=== PATIENT | female | born 1950 | race Caucasian/White ===

== ENCOUNTER → 2017-06-11 | Outpatient (CLI) | payer OTHER, SELFPAY ==
[~2017-06-11] MED LIST: CALMAGZIN PO; Glucophage1000 MG PO; HYDCHL12.5 PO; LEVSOD75 PO; POTA10T PO; [UNRECOGNIZED DRUG - OTHER] PO
== END ==
LOC: LAB SHORT 13:26 → PLD 13:26
DX: D22.61 Melanocytic nevi of right upper limb, including shoulder (principal); D22.5 Melanocytic nevi of trunk
CPT/HCPCS: 88305

== ENCOUNTER 2019-05-05 08:25 | Day surgery (SDC) | payer MEDICARE, OTHER ==
[~2019-05-05 08:25] MED LIST changes: +ASPI81CH PO; +MIRALAX17 GM PO; +VIT1CAPS12 PO
== END 2019-05-05 22:58 | disposition home or self-care (01) ==
LOC: MOI MAM 08:25
DX: D24.1 Benign neoplasm of right breast (principal); N60.11 Diffuse cystic mastopathy of right breast
CPT/HCPCS: 19081; 88305

== ENCOUNTER → 2019-09-13 | Outpatient (CLI) | payer MEDICARE, OTHER | END | disposition home or self-care (01) | LOC: LAB SHORT 09:22 → PLD 09:22 | DX: D22.5 Melanocytic nevi of trunk (principal) | CPT/HCPCS: 88305 ==

== ENCOUNTER 2020-08-07 11:07 | Observation (INO) | payer MEDICARE, OTHER ==
[~2020-08-07] VITALS: Ht 157.5 cm; Wt 116.1 kg
[2020-08-07] MEDS ORDERED: VITAMIN D31000 UNI1 PO (11:26)
[2020-08-07 11:58] LABS: BASOPHILS ABSOLUTE AUTO 0.06 K/mm3 (0.00-0.23); BASOPHILS PERCENT AUTO 1 % (0-2); EOSINOPHILS ABSOLUTE AUTO 0.16 K/mm3 (0.00-0.68); EOSINOPHILS PERCENT AUTO 3 % (0-6); Hematocrit 46.6 % (33.0-51.0); Hemoglobin 15.5 g/dL (11.5-16.0); IMMATURE GRAN ABSOLUTE AUTO 0.05 K/mm3 (0.00-0.10); IMMATURE GRAN PERCENT AUTO 1 % (0-1); LYMPHOCYTES ABSOLUTE AUTO 1.27 K/mm3 (0.84-5.20); LYMPHOCYTES PERCENT AUTO 22 % (21-46); MONOCYTES ABSOLUTE AUTO 0.69 K/mm3 (0.16-1.47); MONOCYTES PERCENT AUTO 12 % (4-13); Mean Corpuscular HGB 30.1 pg (26.0-34.0); Mean Corpuscular HGB Conc 33.3 g/dL (31.5-36.5); Mean Corpuscular Volume 91 fL (80-100); Mean Platelet Volume 11.5 fL (9.1-12.4); NEUTROPHILS ABSOLUTE AUTO 3.67 K/mm3 (1.96-9.15); NEUTROPHILS PERCENT AUTO 62 % (41-73); Platelet Count 178 K/mm3 (150-400); RDW Coefficient Variation 12.7 % (11.7-14.2); RDW Standard Deviation 41.9 fL (35.1-46.3); Red Blood Cell Count 5.15 M/mm3 (3.80-5.20)
[2020-08-07 12:12] LABS: Alanine Aminotransfer (ALT/SGP 43 U/L (12-78); Albumin, Blood 3.6 g/dL (3.4-5.0); Albumin/Globulin Ratio 1.2 (0.8-1.8); Alk Phos 69 U/L (50-136); Anion Gap 5 mmol/L (6-16); Aspartate Aminotrans (AST/SGOT 28 U/L (12-37); Bilirubin, Total 0.8 mg/dL (0.1-1.0); Blood Urea Nitrogen 16 mg/dL (8-24); Bun/Creatinine Ratio 17.1 (12.0-20.0); CO2, Blood 27 mmol/L (21-32); Calcium, Blood 8.9 mg/dL (8.5-10.1); Chloride, Blood 107 mmol/L (98-108); Creatinine, Blood 0.94 mg/dL (0.40-1.00); Globulin, Blood 3.1 g/dL (2.2-4.0); Glomerular Filtration Rate >60 (60-); Glucose, Blood 120 mg/dL (70-99); Sodium, Blood 139 mmol/L (136-145); Total Protein, Blood 6.7 g/dL (6.4-8.2); Troponin I <0.015 ng/mL (0.000-0.040)
[2020-08-07] MEDS ORDERED: MIRALAX17 GM PO (15:38)
[2020-08-07 16:47] LABS: U Amphetamine Screen Not Detected; U Barbituate Screen Not Detected; U Benzodiazapine Screen Not Detected; U Buprenorphine Screen Not Detected; U Cannabinoids Screen Not Detected; U Cocaine Screen Not Detected; U Methadone Screen Not Detected; U Methamphetamine Screen Not Detected; U Opiates Screen Not Detected; U Oxycodone Screen Not Detected; U Phencyclidine Screen Not Detected; U Propoxyphene Screen Not Detected
--- NOTE | 2020-08-07 17:41 | NUR ---
SHIFT SUMMARY PT ALERT ORIENTED X4; PT CAME IN DUE TO CP, SOB DURING HER DR'S APPOINTMENT AT [facility] [place] TODAY. PT CP RESOLVED WHEN SHE CAME TO EMERGENCY ROOM. DENIES RADIATING TO NECK OR ARMS. PT STATED THE CP IS PAIN IN THE CENTER OF HER CHEST. PT STATED SHE HAD CP LAST WEEK; BUT WENT AWAY. PT PMH IS DM TYPE 2; DIET CONTROLLED AND DOES NOT TAKE MEDICATION FOR IT. PT INDEPENDENT IN THE ROOM. NO EDEMA NOTED. PT OBESE. PT NO WOUND NOTED. PT WILL HAVE STRESST TEST TOMORROW. NPO AT MIDNIGHT; PT AWARE. BED IS IN THE LOWEST POSITION AND CALL LIGHT WITHIN REACH
[2020-08-08 03:03] LABS: BASOPHILS ABSOLUTE AUTO 0.08 K/mm3 (0.00-0.23); BASOPHILS PERCENT AUTO 1 % (0-2); EOSINOPHILS ABSOLUTE AUTO 0.18 K/mm3 (0.00-0.68); EOSINOPHILS PERCENT AUTO 3 % (0-6); Hematocrit 44.2 % (33.0-51.0); Hemoglobin 14.7 g/dL (11.5-16.0); IMMATURE GRAN ABSOLUTE AUTO 0.02 K/mm3 (0.00-0.10); IMMATURE GRAN PERCENT AUTO 0 % (0-1); LYMPHOCYTES ABSOLUTE AUTO 1.83 K/mm3 (0.84-5.20); LYMPHOCYTES PERCENT AUTO 25 % (21-46); MONOCYTES ABSOLUTE AUTO 0.87 K/mm3 (0.16-1.47); MONOCYTES PERCENT AUTO 12 % (4-13); Mean Corpuscular HGB 30.2 pg (26.0-34.0); Mean Corpuscular HGB Conc 33.3 g/dL (31.5-36.5); Mean Corpuscular Volume 91 fL (80-100); Mean Platelet Volume 11.2 fL (9.1-12.4); NEUTROPHILS ABSOLUTE AUTO 4.35 K/mm3 (1.96-9.15); NEUTROPHILS PERCENT AUTO 59 % (41-73); Platelet Count 161 K/mm3 (150-400); RDW Coefficient Variation 12.7 % (11.7-14.2); Red Blood Cell Count 4.87 M/mm3 (3.80-5.20); White Blood Cell Count 7.33 K/mm3 (4.00-11.30)
[2020-08-08 03:21] LABS: Bun/Creatinine Ratio 16.2 (12.0-20.0); Calcium, Blood 8.8 mg/dL (8.5-10.1); Creatinine, Blood 1.05 mg/dL (0.40-1.00); Potassium, Blood 3.8 mmol/L (3.5-5.5)
--- NOTE | 2020-08-08 04:50 | NUR ---
SHIFT SUMMARY AOX4. VSS. TELE NSR @82. PT REPORTED MILD MULLER, "HEART FLUTTERS, LIKE BUTTERFLY" IN CHEST & NEW WEAKNESS 1X LAST NIGHT. NO FURTHER MULLER OR HEART FLUTTERS SINCE. DENIES CP OR PRESSURE. REPORTS HAVING HER THROAT FEEL LIKE "ITS CLOSING" c DIFFICULTY SWALLOWING 2X LAST NIGHT. HAD DIFFICULTY SLEEPING TONIGHT. DENIES N/V, PAIN OR SOB. HAS BEEN NPO EXCEPT MEDS & WATER FOR PLANNED STRESS TEST TODAY. D5 c 1/2 NS @75ML/HR RUNNING. IND IN RM. CALL LIGHT IN REACH & PT ABLE TO MAKE NEEDS KNOWN.
--- NOTE | 2020-08-08 15:17 | NUR ---
Update 08/08/20 1514: Unable to discharge today. Pt. will be completing the second part of her stress test tomorrow while still admitted. It is anticipated that pt. will be ready for discharge tomorrow if all goes well with stress test and her condition remains stable. Update 08/08/20 1100: Per chart review with Dr. Harris this am potential for pt. today discharge today dependent upon stress test results. Will begin to prepare discharge and meet with pt. to anticipate any needs.
--- NOTE | 2020-08-08 16:49 | NUR ---
PATIENT IS ALERT AND ORIENTED AND COOPERATIVE WITH CARE. SHE COMPLETED THE FIRST PART OF THE STRESS TEST TODAY. SHE IS SCHEDULED FOR THE SECOND PART TOMMORROW MORNING AT 10AM. THE PATIENT IS TO BE NPO FOR 4 HRS BEFORE THE PROCEDURE AND NO CAFFEINE FOR 8 HOURS PRIOR TO THE PROCEDURE. THE PATIENT C/O A HEADACHE THIS AFTERNOON, TREATED WITH TYLENOL. PATIENT IS UP TO THE RECLINER. NO C/O CP THIS SHIFT. WILL CONTINUE TO MONITOR
--- NOTE | 2020-08-09 00:29 | NUR ---
DISCOMFORT/PAIN PT REPORTING 6/10 PRESSURE R NECK PAIN THAT WOKE HER UP FROM SLEEP THAT LASTS ROUGHLY 10-20 MIN, PAIN LEVEL NOW @ 3/10. PT STATES SHE'S HAD 3 OF THESE NECK PAIN OCURRANCES, 1 BEING 7/10 THAT STARTED MID CHEST RADIATED OUT TO BILAT BREASTS & THEN UP NECK. TELE NSR 91. VSS. WILL MEDICATED FOR PAIN & INFORM CHARGE NURSE & MONITOR.
--- NOTE | 2020-08-09 04:52 | NUR ---
SHIFT SUMMARY AOX4. VSS. TELE NSR @69. PT REPORTED 7/10 MID CHEST PRESSURE THAT RADIATED TO BILAT SIDES OF NECK 1X & 2 OTHER X PT HAD R SIDE NECK PAIN, READ PREVIOUS NOTE. MEDICATED 1X c TYLENOL, NO FURTHER NECK OR CP REPORTED. PLAN TO HAVE 2ND PART STRESS TEST TODAY. HAS BEEN NPO SINCE MIDNIGHT EXCEPT WATER & MEDS FOR PROCEDURE. D5 c 1/2 NS RUNNING @75ML/HR. CALL LIGHT IN REACH & PT ABLE TO MAKE NEEDS KNOWN.
[2020-08-09 05:57] LABS: Bun/Creatinine Ratio 19.8 (12.0-20.0); Calcium, Blood 8.7 mg/dL (8.5-10.1); Creatinine, Blood 1.01 mg/dL (0.40-1.00); Potassium, Blood 3.8 mmol/L (3.5-5.5)
--- NOTE | 2020-08-09 07:30 | NUR ---
NIGHT CHEST PAIN: PER REPORT, THE PATIENT REPORTED TO THE NIGHT RN AFTER THE FACT THAT SHE HAD EXPERIENCED AN EPISODE OF RADIATING CHEST PAIN IN THE NIGHT. DISCUSSED THESE FINDINGS WITH DR. RENAE. NEW ORDERS PLACED.
--- NOTE | 2020-08-09 10:31 | NUR ---
ADMIT: 08/07/2020 DISCHARGE: DX: Chest Pain - Observation CC: Anais Billy RESIDENCE: Home - [address] [facility] [place]. [address] CAREGIVER: Issa Rivero, Spouse / Partner, [phone] DX: atherosclerosis of artery, HTN, HLD, Hypothyroidism DME: None CCM: None Home Health: None Update 08/09/20 1021: Per chart review with Dr. Harris this am, pt. will complete the second half of her stress today. Pt. did develop some pain in her neck throughout the evening. Dr. Harris will review stress test results prior to making final discharge decision. Pt. has also c/o difficulty swallowing when she has said is an ongoing issue. Per notes from Dr. Harris, she is able to eat without incident. Pt. will likely benefit from EGD outpatient per discussion with Dr. Harris. Will add notes to hospital F/U visit for PCP to review recommendations on hospital notes.
--- NOTE | 2020-08-09 14:10 | NUR ---
Update 08/09/20 1400: Results of cardiolite stress test are in and WNL. Dr. Harris has reviewed and decision made to discharge pt. Reviewed discharge letter with pt. Daughter will be picking patient and up and will pick-up any Rx. from [facility] pharmacy if needed. Pt. denied any concerns regarding discharge. Scheduled for hospital F/U with Dr. Arnold 08/22/2020 at 1140. Noted time/date on discharge letter and reviewed with pt. I advised her to contact [facility] if any concerns post discharge or if she would like to request a sooner appointment. Pt. stated her understanding. Given the direct triage line to call if urgent concerns arise post discharge.
--- NOTE | 2020-08-09 15:30 | NUR ---
MILD CHEST PRESSURE: WALKED WITH PATIENT AROUND THE UNIT. DURING THIS GENTLE WALK AROUND THE UNIT, THE PATIENT REPORTED MILD CHEST PRESSURE. SHE DENIED THAT IT WAS PAIN. SHE DENIED NUMBNESS/TINGLING IN ARMS, N/V, VISUAL DISTURBANCES, OR PAIN UP HER NECK. PATIENT REPORTED FEELING A LITTLE "WINDED". RETURNED WITH PATIENT BACK TO HER ROOM. NO CHANGES TO TELE PER CLIENT SUPPORT CONSULTANT. PATIENT REPORTED THAT SHE QUICKLY CAUGHT HER BREATH ONCE SITTING. VITAL SIGNS INITIALLY ELEVATED. AFTER ALLOWING THE PATIENT TO REST, PATIENT'S VITAL SIGNS RETURNED TO BASELINE. NOTIFIED DR. RENAE OF THIS INFORMATION. NO NEW ORDERS AT THIS TIME.
[2020-08-09] MEDS ORDERED: OMEP20ER PO (15:48)
--- NOTE | 2020-08-09 16:35 | NUR ---
FACIAL DROOP: PATIENT'S DAUGHTER NOTED THAT THE PATIENT HAS A SLIGHT FACIAL DROOP. WHEN THE PATIENT SMILES, THE RIGHT SIDE OF THE CORNER OF HER MOUTH DOES NOT PULL BACK FAR OR HIGH THE LEFT SIDE. PATIENT'S PERIPHERAL VISION DOES NOT GO FAR BACK ON THE RIGHT ON THE LEFT. PATIENT REPORTS THAT SHE HAS HAD A LOCALIZED HEADACHE AT THE BACK OF HER HEAD THROUGHOUT THE HOSPITAL STAY (AND PRIOR TO ADMISSION). NO DEFICIT IN STRENGTH, SENSATION OR MOBILITY NOTED IN HER RIGHT ARM AND RIGHT LEG. NO OTHER CHANGES TO NEURO STATUS NOTED. PATIENT REPORTS THAT SHE THINKS THAT THESE SYMPTOMS HAVE BEEN HAPPENING PRIOR TO HER ADMISSION. DISCUSSED WITH DR. RENAE. NEW ORDERS ENTERED.
--- NOTE | 2020-08-09 17:25 | NUR ---
CT RESULTS: NOTIFIED DR. RENAE OF HEAD CT RESULTS. NEW MEDICATION ADDED TO DISCHARGE MEDICATIONS. NO OTHER ORDERS AT THIS TIME.
[2020-08-09] MEDS ORDERED: Aspir 8181 MG PO (17:27)
--- NOTE | 2020-08-09 18:14 | NUR ---
DISCHARGE SUMMARY: DISCUSSED RESULTS OF CT WITH DR. RENAE. PER DR. RENAE PATIENT IS OKAY TO DISCHARGE. NEW DISCHARGE MEDICATION ADDED TO DISCHARGE MED LIST PER DR. RENAE'S ORDER. THROUGHOUT SHIFT PATIENT DENIED CHEST PAIN. DID EXPERIENCE CHEST DISCOMFORT DURING WALK (SEE NURSE'S NOTE). PATIENT STEADY ON FEET. PATIENT DENIED NUMBNESS/TINGLING IN ARMS, SHARP PAIN IN NECK OR VISUAL DISTURBANCES. WHEN GETTING PATIENT READY FOR DISCHARGE, PATIENT'S DAUGHTER POINTED OUT A CHANGE TO THE PATIENT'S MOUTH, STATING THAT IT APPEARED THAT SHE HAD A SLIGHT RIGHT MOUTH DROOP. (SEE NURSE'S NOTE) OTHERWISE, PATIENT'S NEURO STATUS REMAINED UNCHANGED THROUGHOUT THE DAY. DISCHARGE EDUCATION AND INSTRUCTIONS PROVIDED TO THE PATIENT AND HER DAUGHTER. ALL QUESTIONS AND CONCERNS ADDRESSED. PATIENT PROVIDED WITH EDUCATION ON CHEST PAIN, STRESS REDUCTION, PRILOSEC, AND FOLLOW-UP INSTRUCTIONS. PATIENT DISCHARGED IN WHEELCHAIR WITH RN AND DAUGHTER. PATIENT STABLE AT TIME OF DISCHARGE.
== END 2020-08-09 17:37 | disposition home or self-care (01) ==
LOC: ER 11:07 → MEDS 11:08
PROVIDERS: Emergency Medicine; ADMIT Student in an Organized Health Care Education/Training Program
DX: R07.89 Other chest pain (principal); I10 Essential (primary) hypertension; E66.01 Morbid (severe) obesity due to excess calories; Z68.42 Body mass index [BMI] 45.0-49.9, adult; E78.5 Hyperlipidemia, unspecified; R73.03 Prediabetes; E03.9 Hypothyroidism, unspecified; R51.9 Headache, unspecified; N17.9 Acute kidney failure, unspecified; R13.10 Dysphagia, unspecified; R29.810 Facial weakness; G47.33 Obstructive sleep apnea (adult) (pediatric); Z91.040 Latex allergy status; Z88.8 Allergy status to other drugs, medicaments and biological substances; Z91.018 Allergy to other foods; Z91.048 Other nonmedicinal substance allergy status
CPT/HCPCS: 36415; 70450; 71046; 78452; 80048; 80053; 83036; 84484; 85025; 93005; 93010; 93017; 96374; 99285-25; A9270; A9500; C9113; G0378; J0706; J2785; J7042

== ENCOUNTER → 2021-04-03 | Outpatient (CLI) | payer MEDICARE, OTHER ==
[~2021-04-03] MED LIST changes: +Aspir 8181 MG PO; +OMEP20ER PO; +VITAMIN D31000 UNI1 PO
== END | disposition home or self-care (01) ==
LOC: LAB SHORT 15:45
DX: A60.00 Herpesviral infection of urogenital system, unspecified (principal)
CPT/HCPCS: 36415

== ENCOUNTER → 2022-03-22 | Outpatient (CLI) | payer MEDICARE, OTHER ==
[2022-03-22 13:45] LABS: BASOPHILS ABSOLUTE AUTO 0.06 K/mm3 (0.00-0.23); BASOPHILS PERCENT AUTO 1 % (0-2); EOSINOPHILS ABSOLUTE AUTO 0.18 K/mm3 (0.00-0.68); EOSINOPHILS PERCENT AUTO 3 % (0-6); Hematocrit 45.6 % (33.0-51.0); Hemoglobin 15.1 g/dL (11.5-16.0); IMMATURE GRAN ABSOLUTE AUTO 0.03 K/mm3 (0.00-0.10); IMMATURE GRAN PERCENT AUTO 1 % (0-1); LYMPHOCYTES ABSOLUTE AUTO 1.16 K/mm3 (0.84-5.20); LYMPHOCYTES PERCENT AUTO 20 % (21-46); MONOCYTES ABSOLUTE AUTO 0.68 K/mm3 (0.16-1.47); MONOCYTES PERCENT AUTO 12 % (4-13); Mean Corpuscular HGB 30.8 pg (26.0-34.0); Mean Corpuscular HGB Conc 33.1 g/dL (31.5-36.5); Mean Corpuscular Volume 93 fL (80-100); NEUTROPHILS ABSOLUTE AUTO 3.69 K/mm3 (1.96-9.15); NEUTROPHILS PERCENT AUTO 64 % (41-73); RDW Coefficient Variation 13.7 % (11.7-14.2); Red Blood Cell Count 4.91 M/mm3 (3.80-5.20)
[2022-03-22 14:15] LABS: Mean Platelet Volume 11.1 fL (9.1-12.4); Platelet Count 168 K/mm3 (150-400)
[2022-03-22 14:20] LABS: Albumin, Blood 3.5 g/dL (3.4-5.0); Bilirubin, Total 0.7 mg/dL (0.1-1.0); Bun/Creatinine Ratio 18.7 (12.0-20.0); Calcium, Blood 9.4 mg/dL (8.5-10.1); Creatinine, Blood 0.86 mg/dL (0.40-1.00); Globulin, Blood 3.4 g/dL (2.2-4.0); Potassium, Blood 4.1 mmol/L (3.5-5.5); Total Protein, Blood 6.9 g/dL (6.4-8.2)
== END ==
LOC: LAB SHORT 13:39
PROVIDERS: Chiropractor
DX: R10.9 Unspecified abdominal pain (principal)
CPT/HCPCS: 80053; 85025